=== PATIENT | male | born 1950 | race Caucasian/White ===

== ENCOUNTER → 2021-05-23 | Outpatient (CLI) | payer OTHER ==
[~2021-05-23] MED LIST: ALBIPROI; ALBU.083IS; FLUSAL5005; IPRAIS; MOMENI
[2021-05-24 12:32] LABS: Stool Occult Blood Guaiac 1 Neg (Neg)
== END | disposition home or self-care (01) ==
LOC: LAB SHORT 13:06 → LAB 13:06 → LAB FUT 05-08 09:00
PROVIDERS: Family Medicine
DX: I10 Essential (primary) hypertension (principal); E03.9 Hypothyroidism, unspecified; Z79.891 Long term (current) use of opiate analgesic
CPT/HCPCS: 82270